=== PATIENT | male | born 1985 | race African-American/Black ===

== ENCOUNTER 2017-11-14 06:31 | Observation (INO) | payer OTHER ==
[2017-11-14] MEDS: CEFAZOLIN 2 GM/50 ML (PMX) 50 ML IVPB (07:00)
[2017-11-14] MEDS: SOD CHLORIDE 0.9% 1,000 ML IV (07:37)
[2017-11-14 07:45] LABS: ADD MAN DIFF? NO
[2017-11-14 07:46] LABS: BASOPHILS % 0.6 % (0.0-2.0); EOSINOPHILS # 0.1 10^3/ul (0.0-0.5); EOSINOPHILS % 1.2 % (0.0-7.0); HEMATOCRIT 43.9 % (42.0-52.0); HEMOGLOBIN 14.5 g/dl (14.0-18.0); LYMPHOCYTES # 2.2 10^3/ul (0.8-2.9); LYMPHOCYTES % 43.9 % (15.0-51.0); MEAN CORPUSCULAR HEMOGLOBIN 29.4 pg (29.0-33.0); MEAN CORPUSCULAR VOLUME 88.9 fl (82.0-101.0); MEAN PLATELET VOLUME 9.9 fl (7.4-10.4); MONOCYTE # 0.4 10^3/ul (0.3-0.9); MONOCYTES % 8.9 % (0.0-11.0); NEUTROPHIL # 2.2 10^3/ul (1.6-7.5); NEUTROPHILS % 45.2 % (39.0-77.0); PLATELET COUNT 231 10^3/UL (140-415); RED BLOOD COUNT 4.94 10^6/ul (4.70-6.10); RED CELL DISTRIBUTION WIDTH 12.8 % (11.5-14.5)
[2017-11-14 07:46] LABS: WHITE BLOOD COUNT 4.9 10^3/ul (4.8-10.8)
[2017-11-14 08:06] LABS: ALANINE AMINOTRANSFERASE 27 IU/L (13-69); ALBUMIN 4.4 g/dl (3.3-4.9); ALBUMIN/GLOBULIN RATIO 1.37; ALKALINE PHOSPHATASE 85 IU/L (42-121); ANION GAP 12 (8-16); ASPARTATE AMINO TRANSFERASE 24 IU/L (15-46); BILIRUBIN,INDIRECT 0.1 mg/dl (0-1.1); BILIRUBIN,TOTAL 0.1 mg/dl (0.2-1.3); BLOOD UREA NITROGEN 14 mg/dl (7-20); CALCIUM 9.2 mg/dl (8.4-10.2); CARBON DIOXIDE 27 mmol/L (21-31); CHLORIDE 107 mmol/L (97-110); GLUCOSE 112 mg/dl (70-220); POTASSIUM 4.2 mmol/L (3.5-5.1); PROTIME 11.1 Sec (11.9-14.9); PT RATIO 0.9; SODIUM 142 mmol/L (135-144); TOTAL PROTEIN 7.6 g/dl (6.1-8.1)
[2017-11-14 08:07] LABS: PARTIAL THROMBOPLASTIN TIME 28.6 Sec (23.0-35.0)
[2017-11-14] MEDS ORDERED: PROPOFOL 20 ML (09:05)
[2017-11-14] MEDS ORDERED: LIDOCAINE 100 MG SYRINGE (09:05)
[2017-11-14] MEDS ORDERED: MEPERIDINE /PF (100 MG/2 ML) AMPULE (09:06)
[2017-11-14] MEDS ORDERED: CEFAZOLIN 1 GM INJ ×2 (09:06)
[2017-11-14] MEDS ORDERED: METOCLOPRAMIDE 10 MG INJ IV (09:30)
[2017-11-14] MEDS ORDERED: OXYCODONE/ACETAMINOPHEN (5/325) TAB PO ×2 (09:30)
[2017-11-14] MEDS ORDERED: DIPHENHYDRAMINE 50 MG INJ IV (09:30)
[2017-11-14] MEDS ORDERED: MIDAZOLAM 1 MG/ML 2 ML INJ IV (09:30)
[2017-11-14] MEDS ORDERED: HYDROmorphONE 1 MG/5 ML IV SYRINGE IV (09:30)
[2017-11-14] MEDS ORDERED: FENTAnyl 50 MCG/ML VIAL IV ×3 (09:30)
[2017-11-14] MEDS: BUPIVACAINE 0.5%/EPI (SDV) 30 ML INJ (09:54)
[2017-11-14] MEDS ORDERED: ONDANSETRON 4 MG INJ IV (10:30)
[2017-11-14] MEDS: HYDROmorphONE 1 MG/5 ML IV SYRINGE IV ×2 (10:46→11:09)
[2017-11-14] MEDS: ONDANSETRON 4 MG INJ IV (11:41)
[2017-11-14] MEDS: MEPERIDINE 25 MG INJ IV (11:41)
[2017-11-14] MEDS: D5W-0.45 NACL + KCL 20 MEQ 1,000 ML IV (12:29)
[2017-11-14] MEDS: morphine 2 MG INJ IV (14:09)
== END 2017-11-14 15:20 | disposition home or self-care (01) ==
LOC: SDS 06:31 → REC 10:27 → MS1 12:03
DX: K43.6 Other and unspecified ventral hernia with obstruction, without gangrene (principal)
CPT/HCPCS: 49561; 80053; 85025; 85610; 85730; 88304